=== PATIENT | male | born 1960 | race Caucasian/White ===

== ENCOUNTER 2024-05-27 12:14 | Emergency (ER) | payer OTHER, SELFPAY ==
[2024-05-27] VITALS (9 sets, daily range): BP systolic 134–152; BP diastolic 62–100; PULSE 76–84; TEMP 37; O2SAT 94–100; BMI 40.4
--- NOTE | 2024-05-27 12:29 | ECG_ITS ---
[facility] Test Date: 2024-05-27 Pat Name: JEFFREY NO Department: Room: - Gender: Male [employer]: : 1960 Requested By: [id number] Order Number: [id number] Reading MD: SAVANAH SANCHEZ Measurements Intervals [place] Rate: 78 P: 56 NE: 150 QRS: -16 QRSD: 94 T: 22 QT: 378 QTc: 411 Interpretive Statements 1100 Sinus rhythm 8102 Low QRS voltage in chest leads 9120 atypical ECG No previous ECG available for comparison Electronically Signed On 05-28-2024 5:29:06 EST by SAVANAH SANCHEZ
--- NOTE | 2024-05-27 12:31 | ED.SYNCOPE1 ---
HPI - Syncope General Chief Complaint: Syncope Time Seen by Provider: 05/27/24 12:23 Source: patient and EMR Mode of arrival: ambulance History of Present Illness HPI narrative: 63-year-old male presents for near syncopal episode. He was seated at latter day when he almost passed out. He feels much better now. He has had some sinus symptoms over the past week but has not been taking any decongestants for it. He is diabetic and came up to this area from [facility] for a wedding. He had forgotten to bring his diabetic medications. He did have breakfast this morning. He has no chest pain or fever or palpitations. Related Data Allergies Allergy/AdvReac Type Severity Reaction Status Date / Time No Known Drug Allergies Allergy Verified 05/27/24 12:17 Review of Systems ROS Narrative A ten point review of systems is negative except as noted above. PFSH PFSH Social History Little interest or pleasure in doing things: not at all Feeling down, depressed, or hopeless: not at all Exam Narrative Exam Narrative: Nurses note and vital signs reviewed and patient is not hypoxic. General: The patient appears well and in no apparent distress. Skin: Warm, dry, no pallor noted. There is no rash noted. Head: Normocephalic, atraumatic Eye: Normal conjunctiva, no drainage Ears, Nose, Mouth, and Throat: oral mucosa is moist. Nares patent. Cardiovascular: Regular Rate and Rhythm Respiratory: Patient is in no distress, no accessory muscle use, lungs are clear to auscultation, no wheezing, rales or rhonchi GI: Soft and nontender Musculoskeletal: The patient has no evidence of calf tenderness, no pitting edema, symmetrical pulses noted bilaterally Neurological: A&O, normal speech, upper and lower extremity strength intact Psychiatric: Cooperative Constitutional Vital Signs, click to edit/add: Last Vital Signs Temp 98.6 F 05/27/24 12:17 Pulse 79 05/27/24 13:00 Resp 20 05/27/24 13:00 BP 136/64 05/27/24 13:00 Pulse Ox 94 L 05/27/24 13:00 O2 Del Method Room Air 05/27/24 12:17 Course Vital Signs Vital signs: Vital Signs Temperature 98.6 F 05/27/24 12:17 Pulse Rate 78 05/27/24 12:17 Respiratory Rate 20 05/27/24 12:17 Blood Pressure 134/62 05/27/24 12:17 Pulse Oximetry 97 05/27/24 12:17 Oxygen Delivery Method Room Air 05/27/24 12:17 Temperature 98.6 F 05/27/24 12:17 Pulse Rate 79 05/27/24 13:00 Respiratory Rate 20 05/27/24 13:00 Blood Pressure 136/64 05/27/24 13:00 Pulse Oximetry 94 L 05/27/24 13:00 Oxygen Delivery Method Room Air 05/27/24 12:17 MDM - Syncope MDM Narrative Medical decision making narrative: Workup is positive only for elevated blood sugar. He did not take his glipizide the last 2 days. He was given a dose here. She feels back to normal now otherwise and is being discharged home. He will be returning to his home in the [place] area today and will be able to resume his medications. Treatment diagnosis and follow-up were discussed with the patient and his . Differential Diagnosis Differential diagnosis: Likely syncope due to orthostatic hypotension, vasovagal syncope, dehydration and other (Hypoglycemia, hyperglycemia) Lab Data Attestation: I reviewed the patient's lab results. Labs: Lab Results 05/27/24 Range/Units 12:51 WBC 12.0 H (4.0-11.0) 10^3/uL RBC 4.38 L (4.70-6.10) 10^6/uL Hgb 13.6 L (14.0-18.0) g/dL Hct 40.2 L (42.0-54.0) % MCV 91.8 (80.0-94.0) fL MCH 31.1 (25.9-34.0) pg MCHC 33.8 (29.9-35.2) g/dL RDW 12.3 (11.0-15.0) % Plt Count 276 (150-450) 10^3/uL MPV 9.2 L (9.5-13.5) fL Neut % (Auto) 66.3 (43.0-75.0) % Lymph % (Auto) 20.5 (20.5-60.0) % [place] % (Auto) 10.0 (1.7-12.0) % Eos % (Auto) 2.3 (0.9-7.0) % Baso % (Auto) 0.5 (0.2-2.0) % Neut # (Auto) 7.9 H (1.4-6.5) 10^3/uL Lymph # (Auto) 2.5 (1.2-3.8) 10^3/uL [place] # (Auto) 1.2 H (0.3-0.8) 10^3/uL Eos # (Auto) 0.3 (0.0-0.7) 10^3/uL Baso # (Auto) 0.1 (0.0-0.1) 10^3/uL Abs Immat Gran (auto) 0.05 H (0.00-0.03) 10^3/uL Imm/Tot Granulo (auto) 0.4 (0.0-0.5) % Sodium 138 (136-145) mmol/L Potassium 3.9 (3.5-5.1) mmol/L Chloride 105 (98-107) mmol/L Carbon Dioxide 25.5 (21.0-32.0) mmol/L Anion Gap 11.4 BUN 11.0 (7.0-18.0) mg/dL Creatinine 1.10 (0.70-1.30) mg/dL Est GFR ( Amer) >60 (>=60 mL/min/1.73m^2) Est GFR (Non-Af Amer) >60 (>=60 mL/min/1.73m^2) BUN/Creatinine Ratio 10.0 Glucose 387 H (74-106) mg/dL Calcium 8.5 (8.5-10.1) mg/dL Troponin I High Sens 11.8 (4.0-76.1) pg/mL ECG Data Attestation: I personally reviewed and interpreted this ECG as follows: (EKG on my interpretation shows sinus rhythm with rate of 78 and no acute change) Discharge Plan Discharge Chief Complaint: Syncope Clinical Impression: Near syncope, Hyperglycemia Patient Disposition: Home, Self-Care Time of Disposition Decision: 14:24 Condition: Good Mode of Transportation: Private Vehicle Print Language: Uzbek Instructions: Near Syncope (ED), Diabetic Hyperglycemia (ED) Referrals: Physician,Non-Staff, MD [Primary Care Provider] - 1 week
[2024-05-27 13:00] LABS: Basophils Absolute Auto 0.1 10^3/uL (0.0-0.1); Basophils Percent Auto 0.5 % (0.2-2.0); Eosinophils Absolute Auto 0.3 10^3/uL (0.0-0.7); Eosinophils Percent Auto 2.3 % (0.9-7.0); Hematocrit 40.2 % (42.0-54.0); Hemoglobin 13.6 g/dL (14.0-18.0); Immature Granulocytes Abs Auto 0.05 10^3/uL (0.00-0.03); Immature Granulocytes Pct Auto 0.4 % (0.0-0.5); Lymphocytes Absolute Auto 2.5 10^3/uL (1.2-3.8); Lymphocytes Percent Auto 20.5 % (20.5-60.0); Mean Corpuscular HGB Conc 33.8 g/dL (29.9-35.2); Mean Corpuscular Hemoglobin 31.1 pg (25.9-34.0); Mean Corpuscular Volume 91.8 fL (80.0-94.0); Mean Platelet Volume 9.2 fL (9.5-13.5); Monocytes Absolute Auto 1.2 10^3/uL (0.3-0.8); Neutrophils Absolute Auto 7.9 10^3/uL (1.4-6.5); Neutrophils Percent Auto 66.3 % (43.0-75.0); Platelet Count 276 10^3/uL (150-450); Red Blood Count 4.38 10^6/uL (4.70-6.10); Red Cell Distribution Width 12.3 % (11.0-15.0)
[2024-05-27] MEDS: 0.9 % SODIUM CHLORIDE 1,000 ML 1000 ML IV (13:09)
[2024-05-27 13:15] LABS: Anion Gap 11.4; Calcium 8.5 mg/dL (8.5-10.1); Carbon Dioxide 25.5 mmol/L (21.0-32.0); Chloride 105 mmol/L (98-107); Estimated GFR (African America >60 (>=60 mL/min/1.73m^2); Estimated GFR (Non-African Ame >60 (>=60 mL/min/1.73m^2); Glucose 387 mg/dL (74-106); Potassium 3.9 mmol/L (3.5-5.1); Sodium 138 mmol/L (136-145); Troponin I High Sensitivity 11.8 pg/mL (4.0-76.1)
[2024-05-27] MEDS: GLIPIZIDE 5 MG TAB.ER.24 10 MG PO (14:22)
== END 2024-05-27 14:38 | disposition home or self-care (01) ==
PROVIDERS: Emergency Provider Emergency Medicine
DX: R55 Syncope and collapse (principal); E11.65 Type 2 diabetes mellitus with hyperglycemia; Z79.84 Long term (current) use of oral hypoglycemic drugs
CPT/HCPCS: 36415; 80048; 84484; 85025; 93005; 96360; 99285